=== PATIENT | female | born 1930 | race Caucasian/White ===

== ENCOUNTER → 2016-07-18 10:27 | Outpatient (CLI) | payer MEDICARE, OTHER | END | disposition home or self-care (01) | LOC: D.RAD 10:27 | DX: K59.01 Slow transit constipation (principal) ==

== ENCOUNTER → 2017-10-30 08:29 | Outpatient (CLI) | payer MEDICARE, OTHER ==
--- NOTE | ~2017-10-30 | EC ---
PATIENT:NI MONSALVE DATE OF SERVICE: 10/30/17 SEX: F MEDICAL RECORD: [id number] DATE OF : [birth year] LOCATION:[facility] AGE OF PATIENT: 87 ADMISSION DATE: 10/30/17 REFERRING PHYSICIAN: INTERPRETING PHYSICIAN: DORENE CULVER MD ECHOCARDIOGRAM REPORT ECHO CHARGES 4 ECHO COMPLETE Date: 10/30 CLINICAL DIAGNOSIS: ECHOCARDIOGRAPHIC MEASUREMENTS (adult normal given) AC root (d.<3.7cm) 3.0 cm LV Septum d (<1.2 cm> 1.1 cm Valve Excursion 0.9 cm LV Septum (systole) 1.5 cm Left Atria (s.<4.0cm> 2.8 cm LVPW d(<1.2cm) 1.1 cm RV (d.<2.3cm) 2.2 cm LVPW (sytole) 1.6 cm LV diastole(<5.6CM) 6.0 cm MV E-F(>70mm/sec) cm LV systole 4.7 cm LVOT Diameter 1.6 cm MV exc.(>10mm) cm Est.ejection fraction (50-75%) % DOPPLER: LVIT cm/sec A 140 cm/sec E 57.0 cm/sec LA cm/sec RVSP 22.0 mmHg LVOT 79.0 cm/sec AOP1/2T m/s Asc. Ao 293 cm/sec RVOT 71.0 cm/sec RA cm/sec PA 72.0 cm/sec AV Gradient Peak 35.0 mmHg AV Mean 18.0 mmHg AV Area 0.6 cm MV Gradient Peak 7.7 mmHg MV Mean 1.9 mmHg MV Area cm COMMENTS: Whale Fisherman: 1 NITIN PUENTESDSOE Assistant Finance Director: 1 Dr. Culver TAPE# PACS Pericardial Effusion N DATE OF SERVICE: 10/30/2017 FINDINGS: 1. Left ventricular chamber size is mildly dilated. Left ventricular systolic function is mildly reduced. Overall ejection fraction is estimated at 40%. 2. Left atrium, right atrium, and right ventricle chamber sizes are within normal limit. 3. Valvular structures: Aortic valve demonstrates moderate aortic stenosis. Valve area calculates to 0.6 cm-squared and has a gradient of 35 mm across the valve. The remaining valvular structures have normal structure and motion. ECHOCARDIOGRAM REPORT [id number] NI MONSALVE 4. Doppler interrogation else perez reveals mild aortic insufficiency, [id number] mitral regurgitation, and mild tricuspid regurgitation. No other valvular insufficiency or stenosis. Pulmonary systolic pressure is normal, estimated at 22 mmHg. 5. No evidence of pericardial effusion or left ventricular thrombus. TRANSINT:[id number] Voice Confirmation ID: [id number] DOCUMENT ID: [id number] DORENE CULVER MD at 1752 CC: [id number] DICTATION DATE: 10/30/17 1617 E/M ENGINEER: 10/30/17 1707 [facility] [address] [place] [address]
== END | disposition home or self-care (01) ==
LOC: D.ECHO 08:29
DX: I35.0 Nonrheumatic aortic (valve) stenosis (principal); R06.02 Shortness of breath

== ENCOUNTER → 2018-05-15 09:35 | Outpatient (CLI) | payer MEDICARE, OTHER | END | disposition home or self-care (01) | LOC: D.US 09:35 | PROVIDERS: ATTEND Nurse Practitioner | DX: E05.80 Other thyrotoxicosis without thyrotoxic crisis or storm (principal) ==